=== PATIENT | male | born 1950 | race Caucasian/White ===

== ENCOUNTER → 2018-06-21 | Outpatient (CLI) | payer OTHER | LOC: CAT 11:16 | DX: Z13.6 Encounter for screening for cardiovascular disorders (principal); E78.00 Pure hypercholesterolemia, unspecified ==

== ENCOUNTER → 2018-08-12 | Outpatient (CLI) | payer OTHER ==
--- NOTE | ~2018-08-12 | 2DMMODE ---
[facility] [place] [address] 2 D/M-MODE ECHOCARDIOGRAM Name: TORRESPREET HEWITT Room #: REG [facility]#: [id number] Admission: 08/12/18 Attend Phys: Ronen Robertson MD Discharge: Date of : 54 Date of Service: 08/12/18 0947 Report #: [id number] THIS REPORT FOR: //name// APPROVED REPORT Study performed: 08/12/2018 08:45:36 EXAM: Comprehensive 2D, Doppler, and color-flow Echocardiogram Patient Location: Out-Patient Room #: Echo lab 2 Status: routine BSA: 2.06 HR: 79 bpm BP: 148/78 mmHg Rhythm: NSR Other Information Study Quality: Adequate Indications Diabetes Hypertension/HDD 2D Dimensions RVDd: 39.31 mm IVSd: 12.14 (7-11mm) LVOT Diam: 18.07 (18-24mm) LVDd: 40.70 mm PWd: 11.29 (7-11mm) Ascending Ao: 30.46 (22-36mm) LVDs: 25.17 (25-40mm) Aortic Root: 30.04 mm IVC: 16.00 mm Volumes Left Atrial Volume (Systole) Single Plane 4CH: 38.23 mL Single Plane 2CH: 53.64 mL LA ESV Index: 24.00 mL/m2 Aortic Valve AoV Peak López.: 2.45 m/s AO Peak Gr.: 12.90 mmHg LVOT Max P.47 mmHg AO Mean Gr.: 12.69 mmHg LVOT Mean P.70 mmHg AO V2 Mean: 1.64 m/s LVOT Max V: 1.18 m/s AO V2 VTI: 53.88 cm LVOT Mean V: 0.74 m/s JUSTIN (VTI): 1.30 cm2 LVOT V1 VTI: 27.39 cm JUSTIN Vmax: 1.24 cm2 SV (LVOT): 70.19 mL [facility] [place] [address] 2 D/M-MODE ECHOCARDIOGRAM Name: TORRESPREET MARCELINA Room #: REG [facility]#: [id number] Admission: 08/12/18 Attend Phys: Ronen Robertson MD Discharge: Date of : 54 Date of Service: 08/12/18 0947 Report #: [id number] Mitral Valve E/A Ratio: 1.1 MV Decel. Time: 267.80 ms MV E Max López.: 1.15 m/s MV A López.: 1.09 m/s MV PHT: 77.66 ms IVRT: 59.98 ms Pulmonary Valve PV Peak López.: 1.27 m/s PV Peak Gr.: 6.42 mmHg Tricuspid Valve TR Peak López.: 2.50 m/s TR Peak Gr.: 24.93 mmHg PA Pressure: 30.00 mmHg Left Ventricle The left ventricle is normal size. There is normal LV segmental wall motion. Borderline concentric left ventricular hypertrophy. The left ventricular systolic function is normal. The left ventricular ejection fraction is within the normal range. LVEF is 65%. Grade II - pseudonormal filling dynamics. Right Ventricle The right ventricle is normal size. The right ventricular systolic function is normal. Atria The left atrium size is normal. The right atrium size is normal. Aortic Valve The aortic valve is normal in structure. Aortic valve is calcified. Trace aortic regurgitation. Mild aortic stenosis. Mitral Valve Mitral valve leaflets are calcified. There is no mitral valve regurgitation noted. No evidence of mitral valve stenosis. Tricuspid Valve The tricuspid valve is normal in structure. There is trace tricuspid regurgitation. Estimated PAP 30 mmHg. There is no pulmonary hypertension. Pulmonic Valve [facility] [address] [place] [address] 2 D/M-MODE ECHOCARDIOGRAM Name: PREET TORRES Room #: REG CL [facility]#: [id number] Admission: 08/12/18 Attend Phys: Ronen Robertson MD Discharge: Date of : 54 Date of Service: 08/12/18 0947 Report #: [id number] The pulmonary valve is normal in structure. There is no pulmonic valvular regurgitation. Great Vessels The aortic root is normal in size. IVC is normal in size and collapses >50% with inspiration. Pericardium There is no pericardial effusion. <Conclusion> The left ventricle is normal size. The left ventricular systolic function is normal. Grade II - pseudonormal filling dynamics. The right ventricle is normal size. The left atrium size is normal. Mild aortic stenosis. Mitral valve leaflets are calcified. There is trace tricuspid regurgitation. Estimated PAP 30 mmHg. <ELECTRONICALLY SIGNED> By: Ronen Robertson MD 08/12/1847 6 6 Ronen Robertson MD /INF
== END ==
LOC: NUC 07:42
DX: I35.0 Nonrheumatic aortic (valve) stenosis (principal); I35.8 Other nonrheumatic aortic valve disorders; I11.0 Hypertensive heart disease with heart failure; I50.9 Heart failure, unspecified; E11.9 Type 2 diabetes mellitus without complications; I25.10 Atherosclerotic heart disease of native coronary artery without angina pectoris; R06.00 Dyspnea, unspecified; J44.9 Chronic obstructive pulmonary disease, unspecified

== ENCOUNTER 2018-10-07 17:13 | Inpatient (IN) | payer OTHER ==
[~2018-10-07] VITALS: Ht 170.2 cm; Wt 88.0 kg
--- NOTE | 2018-10-07 18:39 | NUR ---
PT ARRIVED TO UNIT WITH EMS APPROX 1835. PT ALERT AND ORIENTED X4. DENIES PAIN AND SOA. 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 DR BROWN PAGED TO NOTIFY OF ARRIVAL. ON UNIT AT THIS TIME. VSS. PT'S AT BEDSIDE. POTENTIAL FOR CARDIAC CATH TOMORROW. WILL MAKE PT NPO. EATING AT THIS TIME. PT'S AT BEDSIDE. BOTH DENY QUESTIONS OR CONCERNS REGARDING POC. NO DISTRESS NOTED.
[2018-10-07 18:45] VITALS: BP 155/57
[2018-10-07 19:34] LABS: ALBUMIN 3.6 g/dL (3.4-5.0); CALCIUM 8.8 mg/dL (8.5-10.1); CREATININE 0.9 mg/dL (0.7-1.3); POTASSIUM 3.9 mmol/L (3.5-5.1); TOTAL BILIRUBIN 0.3 mg/dL (<0.1-1.0); TOTAL PROTEIN 7.4 g/dL (6.4-8.2)
[2018-10-07] MEDS ORDERED: GLIPIZIDE 10 MG10 MG PO (19:53)
[2018-10-07] MEDS ORDERED: QUINAPRIL-HCTZ1 EAC1 PO (19:54)
[2018-10-07] MEDS ORDERED: AMLODIPINE BESY10 MG PO (19:54)
[2018-10-07] MEDS ORDERED: LIPITOR 20 MG T20 M1 PO (19:55)
[2018-10-07] MEDS ORDERED: OMEPRAZOLE40 MG PO (19:56)
[2018-10-07] MEDS ORDERED: CARDURA4 MG PO (19:56)
[2018-10-07 20:14] VITALS: BP 148/70
--- NOTE | 2018-10-07 21:00 | NUR ---
PT ADMITTED TO RM 210,FROM [facility] WITH C/O CHEST PAIN THAT HAS BEEN GOING ON FOR COUPLE OF DAYS.PT IS A/OX4.VSS.DENIES CHEST PAIN AT THIS TIME OR ANY ACUTE DISTRESS.ADMISSION PAPERWORK AND ASSESSMENT COMPLETED.PT UP AD ODESSA TO BR,GAIT STEADY.SR ON MONITOR.ON RA,SATS ADEQUATE.ORIENTED PT ADN TO RM AND UNIT ACTIVITIES.PT AND DENIES ANY NEEDS AT THIS TIME.POC IS TO HAVE PT NPO AFTER MIDNOC FOR POSSIBLE CARDIAC LUKASZ TODAY.
[2018-10-07 23:59] VITALS: BP 108/44
[2018-10-08 00:32] VITALS: BP 133/74
--- NOTE | 2018-10-08 01:36 | NUR ---
PT C/O CHEST PAIN TO LEFT SIDE OF THE CHEST THAT IS ACCOMPANIED BY SOB.PT RATED CP AT 5/10.O2 AT 2LITERS PNC ADMINISTERED.VSS.O2 SATS 95%.PT GIVEN NITRO WITH SOME RELIEF OF CP FROM 5/10 TO 2/10.EKG COMPLETED SHOWING SR.NORMAL EKG.DR CASTILLO NOTIFIED,INSTRUCTED TO GIVE NITRO PASTE,TROPONIN AND CONTINUES TO MONITOR.PT AFTER REASSESSMENT DENIES ANY CHEST PAIN OR SOB.NITRO PASTE APPLIED.AWAITING TROPONIN RESULTS.PT RESTING IN NO OTHER ACUTE DISTRESS.
[2018-10-08 04:53] VITALS: BP 109/61
[2018-10-08 08:00] VITALS: BP 110/64
--- NOTE | 2018-10-08 08:17 | EKG ---
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
--- NOTE | 2018-10-08 15:55 | CATHLAB ---
[facility] [address] [place] [address] INVASIVE PROCEDURE REPORT Name: PREET TORRES Room #: 210-P ADM IN M.R.#: [id number] Admission: 10/07/18 Attend Phys: Gregorio Hensley Discharge: Date of : 54 Date of Service: 10/08/18 1555 Report #: [id number] THIS REPORT FOR: //name// APPROVED REPORT Study performed: 10/08/2018 10:14:08 Patient Details Patient Status: In-Patient Room #: The patient is a 68 year-old male Event Personnel Ronen Robertson Nipple Maker, Colin, Annika STERN RN, Kareen Connor RTR, Nora Peterson David Monitor Procedures Performed Left Heart Cath w/or w/o Coronaries [id number] [facility] Place w/wo Plasty Single RCA 404012 Indication Dyspnea, Unstable angina , Chest pain Risk Factors Chronic Lung DiseaseHypercholesterolemia, Hypertension, Diabetes Tobacco History () Procedure Narrative The Right Groin^ was infiltrated with subcutaneous anesthesia. A PINNACLE 4FR Sheath #[id number] sheath was inserted into the RFA^. Coronary angiography was performed using coronary diagnostic catheters. The right coronary system was accessed and visualized with a JR4 catheter. The left coronary system was accessed and visualized with a JL4 catheter. The left ventricle was accessed and visualized with a PIGTAIL catheter. Left ventricular/Aortic Valve gradient assessed via catheter pullback. Left ventriculogram was performed in 30 degree projection. Closure device was deployed with a 6 Fr MYNXGRIP 6/7F #[id number]. The patient tolerated the procedure well and there were no complications associated with the procedure. Intraoperative Conscious Sedation Sedation start time: 12.21 Case end Time: 13.09 Fentanyl 50 mcg Versed 1 mg Fluoro Time: 9.22 minutes [facility] [place] [address] INVASIVE PROCEDURE REPORT Name: PREET TORRES Room #: 210-P [facility] IN M.R.#: [id number] Admission: 10/07/18 Attend Phys: Gregorio Hensley Discharge: Date of : 54 Date of Service: 10/08/18 1555 Report #: [id number] Dose: DAP 13699 cGycm2 1448 mGy Contrast Type and Amount: Omnipaque 220 ml Coronary Angiography The patient's coronary anatomy is right dominant. Diagnostic Cath Left Main This is a large caliber vessel, patent with no flow-limiting lesions. LAD This is a moderate size caliber vessel, traversing the anterior wall and wrapping around the apex. There is mild disease in the mid segment, 20%. Diagonal 1 This is a moderate size caliber vessel, supplies multiple branches. There is mild disease in the proximal segment, 20%. Circumflex There is a moderate size caliber vessel, with mild disease in the proximal segment, 20%. OM1 This is a moderate size caliber vessel, with no flow-limiting lesions. Right Coronary This is a dominant vessel with mild disease in the proximal segment, 20%. In the distal segment, just before the crux, there is a severe stenosis, 70%. R PDA This is a moderate size caliber vessel, with no flow-limiting lesions. RPLV This is a moderate size caliber vessel, with no flow-limiting lesions. Left Ventriculography The left ventricle is normal in size with normal contractility. The left ventricular ejection fraction is estimated to be 55-60%. Hemodynamics The aortic pressure is 123/64 mmHg with a mean of 87 mmHg. The left ventricular pressure is 160/16 mmHg with a mean of mmHg. The left ventricular end diastolic pressure is 29 mmHg. There was no gradient across the aortic valve upon pullback. Pullback from the left ventricle to the aorta revealed no gradient across the aortic valve. PCI Technique Lesion Percutaneous coronary intervention was performed on the distal right coronary artery. The lesion stenosis prior to intervention was 70% with JAISON 3 flow. A VISTA 6FR JR 4 #[id number] Guide Catheter was used to engage the ostium. A Luge Wire .014 x 182CM #[id number] Interventional Guidewire was used to cross the lesion. [address] [address] INVASIVE PROCEDURE REPORT Name: PREET TORRES Room #: 210-P [facility] IN M.R.#: [id number] Admission: 10/07/18 Attend Phys: Gregorio Hensley Discharge: Date of : 54 Date of Service: 10/08/18 1555 Report #: [id number] BALLOON DILATION A Balloon catheter Euphora RX 2.5 x 10 #[id number] was inserted and inflated up to 8.00atm for 12seconds. Additional Inflation: 8.00atm for 19seconds. Additional Inflation: 8.00atm for 11seconds. STENT DEPLOYMENT A drug-eluting stent RESOLUTE MINDA RX 2.75 X 12 #[id number] was inserted and inflated up to 12.00atm for 18seconds. POST STENT DEPLOYMENT BALLOON DILATION A Balloon catheter Euphora NC RX 3.0 x 8 #[id number] was inserted and inflated up to 14.00atm for 22seconds. Final angiography reveals 0 % stenosis with JAISON 3 flow. Conclusion 1. Successful placement of a drug-eluting stent into the distal RCA stenosis. 2. Mild disease in the LAD and left circumflex arteries. 3. Normal LV systolic function. 4. Aggressive risk factor management and dual antiplatelet therapy. <ELECTRONICALLY SIGNED> By: Ronen Roberston MD 10/08/18 1555 1555 1555 Ronen Robertson MD /INF
--- NOTE | 2018-10-08 16:28 | NUR ---
ASSESSMENT CHARTED - MEDS PER OCT - PT TO THE CARDROOM DRAWING RUNNER TODAY - STENT PLACED TO RCA - GROIN SITE AND VSS POST PROCEDURE. PT COMPLETED BEDREST GROIN SITE STABLE. NO CO'S OF PAINI OR NASUEA. HERMELINDO DIET AND FLUIDS. SEEN BY CARDIAC REHAB. AT THE BEDSIDE. NO CO'S AT THE PRESENT TIME.
[2018-10-08 16:35] VITALS: BP 140/67
[2018-10-08 20:20] VITALS: BP 115/55
--- NOTE | 2018-10-08 21:04 | HC ---
[facility] [place] [address] CONSULTATION Name: PREET TORRES Room #: 210-P ADM IN M.R.#: [id number] Admission: 10/07/18 Attend Phys: Gregorio Hensley MD Discharge: Date of : 54 Report #: [id number] THIS REPORT FOR: //name// CC: Jabari Hensley TYPE OF REPORT: Cardiology consultation. CHIEF COMPLAINT: Chest pain. HISTORY OF PRESENT ILLNESS: This is a 68-year-old gentleman with a history of nonobstructive CAD, diabetes mellitus, hypertension, hypercholesterolemia and COPD; presenting with chest pain. For the past few days, he has been experiencing a discomfort in the left side of his chest, radiating under his armpit into the back area. It has been present, on and off. There is no history of any alleviating or aggravating factors. He denies any recent fever, chills or cough. He did report that the pain improved with nitroglycerin. He was initially evaluated in the ER [facility], serial troponin levels are negative. PAST MEDICAL HISTORY: COPD, diabetes mellitus, hypertension, hypercholesterolemia, GERD and nonobstructive CAD. ALLERGIES: None. MEDICATIONS: Albuterol, amlodipine 10 mg, aspirin, Lipitor 20 mg daily, Klonopin, Cardura, glipizide, Prilosec and quinapril/hydrochlorothiazide. SOCIAL HISTORY: Positive for vaping. FAMILY HISTORY: Negative for premature CAD. REVIEW OF SYSTEMS: A full 10-point review of systems performed. Only the pertinent positives and negatives are described in the HPI. PHYSICAL EXAMINATION: VITAL SIGNS: Blood pressure is 120/70 and heart rate is 60 beats per minute. GENERAL APPEARANCE: An elderly appearing male in no acute distress. HEENT: Normocephalic and atraumatic. Oral mucosa moist. NECK: Supple. LUNGS: CTA. CARDIAC: Regular rate and rhythm. S1 and S2 positive. ABDOMEN: Soft and nontender. EXTREMITIES: No cyanosis. Trace edema. NEUROLOGICAL: Alert and oriented x 3. LABORATORY VALUES: Troponin is negative. Creatinine is 0.9. [facility] [address] [place] [address] CONSULTATION Name: PREET TORRES MANSFIELD Room #: 210- ADM IN M.R.#: [id number] Admission: 10/07/18 Attend Phys: Gregorio Hensley MD Discharge: Date of : 54 Report #: [id number] RADIOLOGICAL DATA: ECG reveals sinus bradycardia. ASSESSMENT AND PLAN: 1. Chest pain syndrome, the differential diagnosis includes ischemia, musculoskeletal, GI, etc. He has had persistent pain for the past 3 days, on and off. It did improve with nitroglycerin. Given his significant risk factors, I did recommend proceeding with a cardiac catheterization. We discussed the pros and cons. He understands and wishes to proceed. 2. Hypertension, continue with his regimen. 3. Hypercholesterolemia, continue with statin therapy. 4. Diabetes mellitus, continue with his hypoglycemic regimen. 5. Tobacco use, complete cessation of all products is recommended. <ELECTRONICALLY SIGNED> By: Ronen Robertson MD 10/08/18 2104 0824 15 Ronen Robertson MD /nt
[2018-10-09 00:11] VITALS: BP 122/67
[2018-10-09 04:18] LABS: ALBUMIN 3.2 g/dL (3.4-5.0); ANION GAP 8 mmol/L (7-16); BUN 13 mg/dL (7-18); CALCIUM 8.9 mg/dL (8.5-10.1); CHLORIDE 105 mmol/L (98-107); CO2 28 mmol/L (21-32); CREATININE 0.7 mg/dL (0.7-1.3); GLUCOSE 109 mg/dL (74-106); POTASSIUM 3.8 mmol/L (3.5-5.1); SGOT 18 U/L (15-37); SGPT 30 U/L (30-65); SODIUM 141 mmol/L (136-145); TOTAL BILIRUBIN 0.3 mg/dL (<0.1-1.0); TOTAL PROTEIN 6.7 g/dL (6.4-8.2); TROPONIN-I <0.06 ng/mL (<0.06)
[2018-10-09 04:40] LABS: HEMATOCRIT 40.2 % (42.0-52.0); HEMOGLOBIN 13.1 gm/dL (14.0-18.0); MCH 26.6 pg (26.0-34.0); MCHC 32.5 g/dL (28.0-37.0); MCV 81.8 fL (80.0-100.0); RBC 4.92 mil/uL (4.50-6.00); RDW 14.4 % (10.5-14.5); WBC 7.2 thou/uL (4.0-11.0)
[2018-10-09 04:55] VITALS: BP 115/71
--- NOTE | 2018-10-09 05:51 | NUR ---
ASSSUMED PT CARE AT 1900. VSS. PT A&OX4 NO COMPLAINTS OF CHEST PAIN OR DISTRESS, PT SLEPT WELL ALL NIGHT, RIGHT GROIN SITE IS CLEAN DRY AND INTACT. PT GOT GRETCHEN WITH SLEEP ON THE MONITOR. PT IS STABLE, WILL CONTINUE TO MONITOR PER POC.
[2018-10-09] MEDS ORDERED: EFFIENT10 MG PO (10:36)
[2018-10-09] MEDS ORDERED: LIPITOR40 MG PO (10:36)
[2018-10-09] MEDS ORDERED: ASPIR 8181 MG PO (10:36)
--- NOTE | 2018-10-09 10:42 | EKG ---
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
--- NOTE | 2018-10-09 10:47 | EKG ---
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
[2018-10-09 11:03] VITALS: BP 115/71
--- NOTE | 2018-10-09 11:51 | NUR ---
ASSESSMENT CHARTED - MEDS PER OCT - NO CO'S OF PAIN OR NAUSEA. HERMELINDO DIET AND FLUIDS, PT WITH CO'S OF SOME DIARRHEA - IMMODIUM ORDERED - PT DID NOT WISH TO WAIT FOR MED TO COME FROM PHARMACY. GROIN SITE STABLE - PT GIVEN XANEX FOR ANXIOUSNESS. PT HOME - INSTRUCTION RE HOME MEDS/ CARE AND FOLLOW UP GIVEN TO PATIENT. dR MENDOSA DID NOT WRITE FOR NEW MED TOPROL - DR BRYAN NOTIFIED AND HE STATED FOR PATIENT TO CONTINUE TAKING ACCUPRIL AND HE WILL FOLLOW UP WITH PATIENT IN THE OFFICE - PT INFORMED THAT ACCURIL IS TO BE TAKEN - HE STATED UNDERSTANDING. PT LEFT UNIT VIA WHEEL CHAIR - HOME VIA PVT VEHICLE ACCOMPANIED BY - MONITOR AND IV REMOVED PRIOR TO DC. NO CO'S AT TIME OF DISCHARGE.
== END 2018-10-09 11:35 | disposition home or self-care (01) | DRG 246 ==
LOC: 2N 17:13
PROVIDERS: Internal Medicine Cardiovascular Disease; ADMIT Internal Medicine
PROC: 027034Z Dilation of Coronary Artery, One Artery with Drug-eluting Intraluminal Device, Percutaneous Approach (ICD-10-PCS; principal; 2018-10-08)
PROC: B2111ZZ Fluoroscopy of Multiple Coronary Arteries using Low Osmolar Contrast (ICD-10-PCS; principal; 2018-10-08)
PROC: 4A023N7 Measurement of Cardiac Sampling and Pressure, Left Heart, Percutaneous Approach (ICD-10-PCS; principal; 2018-10-08)
PROC: B2151ZZ Fluoroscopy of Left Heart using Low Osmolar Contrast (ICD-10-PCS; principal; 2018-10-08)
DX: I25.110 Atherosclerotic heart disease of native coronary artery with unstable angina pectoris (principal); I50.33 Acute on chronic diastolic (congestive) heart failure; E11.9 Type 2 diabetes mellitus without complications; I10 Essential (primary) hypertension; E78.00 Pure hypercholesterolemia, unspecified; K21.9 Gastro-esophageal reflux disease without esophagitis; J44.9 Chronic obstructive pulmonary disease, unspecified; Z79.899 Other long term (current) drug therapy; Z79.82 Long term (current) use of aspirin; Z88.0 Allergy status to penicillin
CPT/HCPCS: 10081

== ENCOUNTER → 2019-10-20 | Outpatient (CLI) | payer OTHER ==
[~2019-10-20] MED LIST: AMLODIPINE BESY10 MG PO; ASPIR 8181 MG PO; CARDURA4 MG PO; EFFIENT10 MG PO; GLIPIZIDE 10 MG10 MG PO; LIPITOR 20 MG T20 M1 PO; LIPITOR40 MG PO; OMEPRAZOLE40 MG PO; QUINAPRIL-HCTZ1 EAC1 PO
== END ==
LOC: SJCVCIMAG 08:32
DX: I08.0 Rheumatic disorders of both mitral and aortic valves (principal); I10 Essential (primary) hypertension; I25.10 Atherosclerotic heart disease of native coronary artery without angina pectoris; E78.00 Pure hypercholesterolemia, unspecified; K21.9 Gastro-esophageal reflux disease without esophagitis; J44.9 Chronic obstructive pulmonary disease, unspecified; E11.9 Type 2 diabetes mellitus without complications; Z79.899 Other long term (current) drug therapy

== ENCOUNTER → 2020-05-01 | Outpatient (CLI) | payer OTHER | LOC: SJCVCIMAG 04-23 06:50 | PROVIDERS: ATTEND Internal Medicine Cardiovascular Disease | DX: I25.10 Atherosclerotic heart disease of native coronary artery without angina pectoris (principal); R00.0 Tachycardia, unspecified; I49.1 Atrial premature depolarization; I10 Essential (primary) hypertension; J44.9 Chronic obstructive pulmonary disease, unspecified; E78.00 Pure hypercholesterolemia, unspecified; F17.200 Nicotine dependence, unspecified, uncomplicated; Z79.899 Other long term (current) drug therapy ==

== ENCOUNTER → 2020-06-25 | Outpatient (CLI) | payer OTHER | LOC: SJCVC 10:56 | PROVIDERS: ATTEND Internal Medicine Cardiovascular Disease | DX: R00.0 Tachycardia, unspecified (principal); I25.10 Atherosclerotic heart disease of native coronary artery without angina pectoris; I10 Essential (primary) hypertension; E78.00 Pure hypercholesterolemia, unspecified; I35.0 Nonrheumatic aortic (valve) stenosis; Z72.0 Tobacco use ==

== ENCOUNTER → 2020-07-04 | Outpatient (CLI) | payer OTHER | LOC: SJCVC 13:17 | PROVIDERS: ATTEND Internal Medicine Cardiovascular Disease | DX: I25.10 Atherosclerotic heart disease of native coronary artery without angina pectoris (principal); R00.0 Tachycardia, unspecified; I10 Essential (primary) hypertension; E78.00 Pure hypercholesterolemia, unspecified; R00.9 Unspecified abnormalities of heart beat; E11.9 Type 2 diabetes mellitus without complications; Z72.0 Tobacco use; Z79.899 Other long term (current) drug therapy ==

== ENCOUNTER → 2020-07-16 | Outpatient (CLI) | payer OTHER | LOC: SJCVC 14:10 | PROVIDERS: ATTEND Internal Medicine Cardiovascular Disease | DX: I25.10 Atherosclerotic heart disease of native coronary artery without angina pectoris (principal); I49.1 Atrial premature depolarization; I10 Essential (primary) hypertension; E78.00 Pure hypercholesterolemia, unspecified; R00.9 Unspecified abnormalities of heart beat; F17.200 Nicotine dependence, unspecified, uncomplicated; Z79.899 Other long term (current) drug therapy ==

== ENCOUNTER → 2020-12-24 | Outpatient (CLI) | payer OTHER | LOC: SJCVC 09:22 | PROVIDERS: ATTEND Internal Medicine Cardiovascular Disease | DX: I10 Essential (primary) hypertension (principal); I25.10 Atherosclerotic heart disease of native coronary artery without angina pectoris; E78.00 Pure hypercholesterolemia, unspecified; J44.9 Chronic obstructive pulmonary disease, unspecified; E11.9 Type 2 diabetes mellitus without complications; R60.0 Localized edema; K21.9 Gastro-esophageal reflux disease without esophagitis; E78.5 Hyperlipidemia, unspecified; F17.210 Nicotine dependence, cigarettes, uncomplicated; Z79.899 Other long term (current) drug therapy; Z86.010 Personal history of colon polyps; Z88.0 Allergy status to penicillin ==

== ENCOUNTER → 2021-05-09 | Outpatient (CLI) | payer OTHER | LOC: SJCVCIMAG 07:07 | PROVIDERS: ATTEND Internal Medicine Cardiovascular Disease | DX: I08.2 Rheumatic disorders of both aortic and tricuspid valves (principal); I65.23 Occlusion and stenosis of bilateral carotid arteries; I10 Essential (primary) hypertension; I25.10 Atherosclerotic heart disease of native coronary artery without angina pectoris; E78.00 Pure hypercholesterolemia, unspecified; H34.9 Unspecified retinal vascular occlusion; J44.9 Chronic obstructive pulmonary disease, unspecified; E11.9 Type 2 diabetes mellitus without complications; E78.5 Hyperlipidemia, unspecified; F17.200 Nicotine dependence, unspecified, uncomplicated; Z88.0 Allergy status to penicillin; Z79.82 Long term (current) use of aspirin; Z79.899 Other long term (current) drug therapy ==